=== PATIENT | female | born 1980 | race Caucasian/White ===

== ENCOUNTER → 2024-01-29 13:22 | Outpatient (REF) | payer BC, SELFPAY | LOC: WDC 13:22 | PROVIDERS: ATTENDING PHYSICIAN Internal Medicine | DX: Z12.31 Encounter for screening mammogram for malignant neoplasm of breast (principal) | CPT/HCPCS: 77063; 77067 ==

== ENCOUNTER → 2024-11-05 10:31 | Outpatient (REF) | payer BC, SELFPAY | LOC: WDC 10:31 | PROVIDERS: ATTENDING PHYSICIAN Obstetrics & Gynecology | DX: N64.52 Nipple discharge (principal) | CPT/HCPCS: 76642; 77061; 77065 ==

== ENCOUNTER → 2024-11-12 16:12 | Outpatient (REF) | payer BC, SELFPAY | LOC: RAD 16:12 | PROVIDERS: ATTENDING PHYSICIAN Obstetrics & Gynecology Gynecology; FAMILY PHYSICIAN Internal Medicine | DX: R93.89 Abnormal findings on diagnostic imaging of other specified body structures (principal) | CPT/HCPCS: 76830; 76856 ==

== ENCOUNTER → 2025-06-02 13:55 | Outpatient (REF) | payer BC, SELFPAY | LOC: WDC 13:55 | PROVIDERS: ATTENDING PHYSICIAN Obstetrics & Gynecology | DX: R92.8 Other abnormal and inconclusive findings on diagnostic imaging of breast (principal); N64.52 Nipple discharge | CPT/HCPCS: 76642; 77062; 77066 ==

== ENCOUNTER → 2025-06-29 07:54 | Outpatient (REF) | payer BC, SELFPAY ==
--- NOTE | 2025-06-29 13:20 | OID.BR.INTR ---
OID Breast Navigator - Initial
- -
Date of Contact: 06/29/25
Met with patient. Will follow up as needed per protocol.
== END ==
LOC: WDC 07:54
PROVIDERS: ATTENDING PHYSICIAN Obstetrics & Gynecology
DX: N63.14 Unspecified lump in the right breast, lower inner quadrant (principal)
CPT/HCPCS: 19083; 88305

== ENCOUNTER → 2025-07-27 12:56 | Outpatient (REF) | payer BC, SELFPAY | LOC: HWRAD 12:56 | PROVIDERS: ATTENDING PHYSICIAN Obstetrics & Gynecology; FAMILY PHYSICIAN Internal Medicine | DX: E03.9 Hypothyroidism, unspecified (principal); N92.4 Excessive bleeding in the premenopausal period | CPT/HCPCS: 76536; 76830; 76856 ==